=== PATIENT | male | born 1995 | race Two or more races ===

== ENCOUNTER 2020-10-03 19:47 | Emergency (ER) | payer MEDICAID, OTHER ==
[~2020-10-03] VITALS: Ht 180.3 cm; Wt 88.5 kg
[2020-10-03 19:55] VITALS: BP 136/66
== END 2020-10-04 01:07 | disposition left against medical advice (07) ==
LOC: ER 19:47 → EDBD 19:47 → ER 10-04 01:07
DX: F32.9 Major depressive disorder, single episode, unspecified (principal); Z53.21 Procedure and treatment not carried out due to patient leaving prior to being seen by health care provider

== ENCOUNTER 2020-10-04 12:24 | Emergency (ER) | payer MEDICAID, OTHER ==
[~2020-10-04] VITALS: Ht 180.3 cm; Wt 88.5 kg
[2020-10-04 12:24] VITALS: BP 128/92
== END 2020-10-04 17:10 | disposition left against medical advice (07) ==
LOC: ER 12:24
DX: T43.591A Poisoning by other antipsychotics and neuroleptics, accidental (unintentional), initial encounter (principal); Z53.21 Procedure and treatment not carried out due to patient leaving prior to being seen by health care provider; Y93.89 Activity, other specified